=== PATIENT | male | born 1960 | race Caucasian/White ===

== ENCOUNTER → 2023-06-07 | Outpatient (REF) | payer OTHER, SELFPAY | LOC: DHSLP | PROVIDERS: ATTENDING PHYSICIAN Internal Medicine Critical Care Medicine; FAMILY PHYSICIAN Family Medicine | DX: G47.33 Obstructive sleep apnea (adult) (pediatric) (principal) | CPT/HCPCS: 95800 ==

== ENCOUNTER → 2025-03-29 15:16 | Outpatient (REF) | payer BC, SELFPAY | LOC: HWRAD 15:16 | PROVIDERS: ATTENDING PHYSICIAN Physician Assistant | DX: M79.672 Pain in left foot (principal) | CPT/HCPCS: 73630 ==